=== PATIENT | male | born 1945 | race Caucasian/White ===

== ENCOUNTER 2017-05-26 11:28 | Day surgery (SDC) | payer MEDICARE, BC ==
[~2017-05-26 11:28] MED LIST: Acetaminophen TAB* 325 MG PO PRN; Buffered Lidocaine 0.9% SYRIN* 5 ML/SYR SYRINGE INTRADERM ONE
[2017-05-26] MEDS ORDERED: Midazolam* 1 MG/ML 2 ML VIAL (2 MG) ONE (12:45)
[2017-05-26] MEDS ORDERED: fentaNYL* 50 MCG/ML 2 ML VIAL (100 MCG VIAL) ONE (13:16)
[2017-05-26 13:49] VITALS: BP 135/88
--- NOTE | 2017-05-26 15:03 | OP ---
DATE OF OPERATION/DATE OF DICTATION: 05/26/2017 - [facility] DATE OF : 1945. SURGEON: Dr. Miguel Santos. PRIVATE ADVISOR: None. ANESTHESIA: Topical with intravenous sedation. PRE-OP DIAGNOSIS: Cataract, left eye. POST-OP DIAGNOSIS: Cataract, left eye. OPERATIVE PROCEDURE: Phacoemulsification and cataract extraction with posterior chamber intraocular lens implant, left eye. COMPLICATIONS: None. BLOOD LOSS: None. DESCRIPTION OF PROCEDURE: The patient was brought to the operating room and received a small amount of intravenous sedation. A drop of Tetracaine was placed in his left eye. He was prepped and draped in the usual sterile fashion for ophthalmic surgery and attention was directed to the left eye where a speculum was placed. A paracentesis was created at the 5 o'clock position and 0.1 cc of 1 percent preservative-free Lidocaine was injected into the anterior chamber followed by DisCoVisc. The eye was digitally stabilized while a 2.75 mm keratome was used to create a triplanar clear corneal incision at the 3 o'clock position. A continuous curvilinear capsulorrhexis was created with a cystotome and Utrata forceps. BSS on a cannula was used to hydrodissect the lens from the capsule. Phacoemulsification was performed in a tkooco-aop-rwtmoja technique to create four fragments which were removed. Residual cortical material was removed with irrigation and aspiration. DisCoVisc was used to inflate the capsular bag and an AUOOTO 18.0 diopter lens was folded and inserted into the capsular bag. DisCoVisc was removed using irrigation and aspiration. BSS on a cannula was used to hydrate the corneal stroma and seal the wound. At the end of the case the pupil was round and the lens was centered. The eye was of normal pressure and the wound was water tight. The speculum was removed and topical Maxitrol ointment was placed on the surface of the eye. The eye was closed, patched and shielded and the patient was sent to the recovery room in stable condition with post operative instructions and follow-up appointment given. [id number]/[facility]PS #: [id number] MTDD
[2017-05-26] MEDS ORDERED: Tropicamide 1% OPTH.SOL* BTL ONE (15:27)
[2017-05-26] MEDS ORDERED: Tetracaine 0.5% OPTH.SOL 4 ML* 1 DROP BTL ONE (15:27)
[2017-05-26] MEDS ORDERED: Ketorolac 0.5% OPHTH (NF) 0.5 % 5 ML BTL ONE (15:27)
[2017-05-26] MEDS ORDERED: Phenylephrine 2.5% OPTH.SOL* 2 ML BTL ONE (15:27)
[2017-05-26] MEDS ORDERED: Cyclopentolate 1% OPTH.SOL* 2 ML BTL ONE (15:27)
[2017-05-26] MEDS ORDERED: Neomycin/Polymy/Dex OPHTH.OIN* 3.5 GM ONE (15:27)
[2017-05-26] MEDS ORDERED: Lidocaine 1% MPF* 2 ML VIAL ONE (15:27)
== END 2017-05-26 13:49 | disposition home or self-care (01) ==
LOC: OREAST 11:28
PROVIDERS: ATTEND Ophthalmology
DX: H25.12 Age-related nuclear cataract, left eye (principal); I10 Essential (primary) hypertension; Z87.891 Personal history of nicotine dependence; E78.00 Pure hypercholesterolemia, unspecified
CPT/HCPCS: A9270-GY; J2250; J3010; V2632

== ENCOUNTER 2018-03-08 13:43 | Emergency (ER) | payer MEDICARE, BC ==
[2018-03-08 14:20] VITALS: BP 145/90
--- NOTE | 2018-03-08 15:12 | RAD ---
HISTORY: twisted fri, pain, swelling COMPARISONS: None VIEWS: 4 , Frontal, lateral, axial, and oblique views of the left knee FINDINGS: BONE DENSITY: Normal. BONES: There is a linear lucency along and inferior patellar enthesophyte. Elsewhere, there is no displaced fracture. JOINTS: There is mild tricompartmental osteoarthritis. There is a small suprapatellar joint effusion without lipohemarthrosis. ALIGNMENT: There is no dislocation. SOFT TISSUES: There is peripheral arterial calcification. OTHER FINDINGS: None. IMPRESSION: 1. THERE IS A LINEAR LUCENCY ALONG THE INFERIOR PATELLAR ENTHESOPHYTE WHICH MAY REFLECT A FRACTURE THROUGH THE ENTHESOPHYTE OF UNCERTAIN ACUITY. RECOMMEND CORRELATION WITH SITE OF PAIN. 2. OSTEOARTHRITIS. 3. SMALL JOINT EFFUSION. 4. PERIPHERAL ARTERIAL DISEASE
--- NOTE | 2018-03-08 15:32 | UC ---
Knee Pain HPI - HPI Summary HPI Summary: A 72 y/o male accompanied by his presents to [facility] c/o left knee pain reaching 7/10 in severity. As per , the patient is constantly in pain. As per triage, "lAccording to the patient, on Thursday night (03/05/2018) he twisted his left knee slighting. That following Thursday (03/06/2018), he had no problems ambulating. On Thursday (03/06/2018), he drove six-hours and has been "sucky" every since. He noted that he can ambulate fairly good, however, getting up or down brings on pain in which he described, "in and out of column" . He stated that when he keeps his leg straight, he experiencing very minimal pain (feels it slightly), however, when he bends, it hurts. He has to take a few seconds to straightened his leg out and has to walk with a limp. It does get better when he continues walking. He denies any fever, chills or previous injury. Additionally denies any calf or ankle pain. To alleviate symptoms, he took Tylenol and Ibuprofen last night along with placing an ice pack on the area , but he is unsure if it made a difference in his pain level. Patient did not take any medications today for his pain/symptoms. Has seen Orthopedics, Dr. Headley, in the past for a left broken wrist. His left knee does not look swollen from his perspective, but he is unsure. No known allergies. Pt's medications reviewed this visit. - History of Current Complaint Chief Complaint: UCLowerExtremity Stated Complaint: KNEE INJURY Time Seen by Provider: 03/08/18 15:17 Hx Obtained From: Patient Onset/Duration: Lasting Days, Still Present Severity Initially: Moderate Severity Currently: Moderate Pain Intensity: 7 Pain Scale Used: 0-10 Numeric Character: Stiffness Aggravating Factor(s): Movement - Bending movment Alleviating Factor(s): Nothing Associated Signs And Symptoms: Positive: Negative Able to Bear Weight: No - Patient is limping during ambulance. - Allergies/Home Medications Allergies/Adverse Reactions: Allergies Allergy/AdvReac Type Severity Reaction Status Date / Time No Known Allergies Allergy Verified 03/08/18 14:20 Home Medications: Home Medications Flaxseed Oil [[place]-3 Flaxseed Oil] 1,000 mg PO DAILY 03/08/18 [History Confirmed 03/08/18] Lisinopril 20 mg PO DAILY 03/08/18 [History Confirmed 03/08/18] PMH/Surg Hx/FS Hx/Imm Hx Endocrine History: Diabetes - NEGATIVE Cardiovascular History: Hypertension - Surgical History Surgical History: Yes Surgery Procedure, Year, and Place: 1949- HERNIA REPAIR- [place]. - APPENDECTOMY- [place]. 1967- [facility]IA REPAIR- [facility]. - HERNIA REPAIR- [facility]. 2008- HERNIA REPAIR- [facility]. 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 Alcohol Use: Rare Alcohol Amount: 1-2 BEERS/ EVERY 6 MONTHS Substance Use Type: None Smoking Status (MU): Former Smoker Type: Cigarettes Amount Used/How Often: 2 PPD FOR 33 YRS Length of Time of Smoking/Using Tobacco: 33 YRS Have You Smoked in the Last Year: No When Did the Patient Quit Smoking/Using Tobacco: 1992 - Immunization History Most Recent Tetanus Shot: UTD, PT STATES PER DR. TOMAS Review of Systems Constitutional: Negative Skin: Negative Eyes: Negative ENT: Negative Respiratory: Negative Cardiovascular: Negative Gastrointestinal: Negative Genitourinary: Negative Motor: Negative Neurovascular: Negative Musculoskeletal: Other: - Left knee pain. Neurological: Negative Psychological: Negative Is Patient Immunocompromised?: No All Other Systems Reviewed And Are Negative: Yes Physical Exam - Summary Physical Exam Summary: Vital Signs Reviewed: Yes A+Ox3, no distress Eyes: Conjunctiva Clear, HECTOR. EOM intact and full ENT: Hearing grossly normal TM x 2 clear, mmoist, uvula midline, no exudate, no erythema Neck: Positive: Supple Respiratory: Positive: No respiratory distress, No accessory muscle use + CTA throughout no w/r Cardiovascular: RRR nl s1, s2 no m/r CBT <2 sec 2+ DP, PT no calf discomfort abd soft + BS nt/nd no guarding, no distension Musculoskeletal Exam: left LE: + SLE + flex/ext knee with discomfort lateral asect + flex/ext ankle no edema neg anterior/posterior drawer Neurological: Positive: Alert, + sensation throughout + gross sensation Psychological: Positive: Normal Response To Family Skin: Positive: no rash, no ecchymosis Triage Information Reviewed: Yes Vital Signs: Initial Vital Signs Temp 98.6 F 03/08/18 14:15 Pulse 77 03/08/18 14:15 Resp 18 03/08/18 14:15 BP 145/90 03/08/18 14:15 Pulse Ox 94 03/08/18 14:15 Vital Signs Reviewed: Yes Diagnostics - Radiology KNEE XR Radiology Interpretation Completed By: Radiologist - 1. THERE IS A LINEAR LUCENCY ALONG THE INFERIOR PATELLAR ENTHESOPHYTE WHICH MAY REFLECT A FRACTURE THROUGH THE ENTHESOPHYTE OF UNCERTAIN ACUITY. RECOMMEND CORRELATION WITH SITE OF PAIN. 2. OSTEOARTHRITIS. 3. SMALL JOINT EFFUSION. 4. PERIPHERAL ARTERIAL DISEASE [facility] PHYSICIAN REVIEWED THIS RADIOLOGY REPORT. Knee Pain Course/Dx - Course Course Of Treatment: Blood pressure noted and patient informed to follow up with PCP. Pt with left knee pain s/p twisting on Thursday. pt states pain worse with walking and ROM. no paresthesia. no weakness. will check xray. if neg - recommend rolando. crutches. ice. motrin/apap. orthoreferral. pt with mildly elevated bp -f/u with pcp - Differential Dx/Diagnosis Provider Diagnoses: knee sprain Discharge - Sign-Out/Discharge Documenting (check all that apply): Patient Departure - DISCHARGE All imaging exams completed and their final reports reviewed: Yes - KNEE XR - Discharge Plan Condition: Stable Disposition: HOME Patient Education Materials: Crutch Instructions (ED), Knee Pain (ED) Referrals: Edie Headley MD [Medical Doctor] - Grace Cruz MD [Primary Care Provider] - Additional Instructions: -wear rolando wrap for comfort and support -apply ice (20 min at a time) every 2-3 hours for the next 2 days -use crutches so that you are walk normally without a limp -Elevate your leg - this will help with swelling and pain - Alternate ibuprofen (advil, Motrin) 400mg and tylenol 2 tablets every 3 hours for pain. Take with food. Do NOT take for more than 4-5 days - Contact the orthopedic office to schedule a follow-up appointment in the next 1-2 days. If you pain becomes uncontrolled, you develop fever, reddness, red streaking, increased swelling, or other concerns it is recommended you go to the emergency department for further evaluation - Billing Disposition and Condition Condition: STABLE Disposition: Home - Attestation Statements Document Initiated by Scribe: Yes Documenting Scribe: Marc Stover Provider For Whom Scribe is Documenting (Include Credential): Lata Ferrell MD Scribe Attestation: Marc Banks, scribed for Lata Ferrell MD on 03/10/18 at 1417. Scribe Documentation Reviewed: Yes Provider Attestation: The documentation as recorded by the luisibMarc woods accurately reflects the service I personally performed and the decisions made by me, Lata Ferrell MD
== END 2018-03-08 16:10 | disposition home or self-care (01) ==
LOC: UCEAST 13:43
CPT/HCPCS: 99213; G0463

== ENCOUNTER 2018-10-19 06:16 | Day surgery (SDC) | payer MEDICARE, BC ==
[~2018-10-19 06:16] MED LIST changes: -Buffered Lidocaine 0.9% SYRIN* 5 ML/SYR SYRINGE INTRADERM ONE; +Buffered Lidocaine 1% SYRIN* 1 ML/SYRINGE INTRADERM ONE
[2018-10-19] MEDS ORDERED: Midazolam* 1 MG/ML 2 ML VIAL (2 MG) ONE (07:28)
--- NOTE | 2018-10-19 08:22 | OP ---
OPERATIVE REPORT: DATE OF OPERATION: 10/19/18 DATE OF : 45 SURGEON: Dr. Miguel Santos. ANTHROPOLOGY PROFESSOR: None. ANESTHESIA: Topical with intravenous sedation. PRE-OP DIAGNOSIS: Cataract, right eye. POST-OP DIAGNOSIS: Cataract, right eye. OPERATIVE PROCEDURE: Phacoemulsification and cataract extraction with posterior chamber intraocular lens implant, right eye. COMPLICATIONS: None. BLOOD LOSS: None. OPERATIVE FINDINGS: The patient was brought to the operating room and received a small amount of int ravenous sedation. A drop of Tetracaine was placed in his right eye. He was prepped and draped in t he usual sterile fashion for ophthalmic surgery and attention was directed to the right eye where a s peculum was placed. A paracentesis was created at the 11 o'clock position and 0.1 cc of 1 percent pr eservative-free Lidocaine was injected into the anterior chamber followed by DisCoVisc. The eye was digitally stabilized while a 2.75 mm keratome was used to create a triplanar clear corneal incision a t the 9 o'clock position. A continuous curvilinear capsulorrhexis was created with a cystotome and U trata forceps. BSS on a cannula was used to hydrodissect the lens from the capsule. Phacoemulsifica tion was performed in a [id number] technique to create four fragments which were removed. Re sidual cortical material was removed with irrigation and aspiration. DisCoVisc was used to inflate th e capsular bag and an AU00T0 19.0 diopter lens was folded and inserted into the capsular bag. DisCoV isc was removed using irrigation and aspiration. BSS on a cannula was used to hydrate the corneal st estelle and seal the wound. At the end of the case the pupil was round and the lens was centered. The e ye was of normal pressure and the wound was water tight. The speculum was removed and topical Maxitr ol ointment was placed on the surface of the eye. The eye was closed, patched and shielded and the p atient was sent to the recovery room in stable condition with post operative instructions and follow- up appointment given. [id number]/[facility] #: [id number]
[2018-10-19 09:24] VITALS: BP 126/77
[2018-10-19] MEDS ORDERED: Tetracaine 0.5% OPTH.SOL 4 ML* 1 DROP BTL ONE (12:11)
[2018-10-19] MEDS ORDERED: Neomycin/Polymy/Dex OPHTH.OIN* 3.5 GM ONE (12:11)
[2018-10-19] MEDS ORDERED: Lidocaine 1%* 5 ML VIAL ONE (12:11)
[2018-10-19] MEDS ORDERED: Ketorolac 0.5% OPHTH (NF) 0.5 % 5 ML BTL ONE (12:11)
[2018-10-19] MEDS ORDERED: Tropicamide 1% OPTH.SOL* BTL ONE (12:11)
[2018-10-19] MEDS ORDERED: Phenylephrine OPHTH SOL 2.5%* 2 ML ONE (12:11)
[2018-10-19] MEDS ORDERED: Cyclopentolate 1% OPTH.SOL* 2 ML BTL ONE (12:11)
== END 2018-10-19 08:10 | disposition home or self-care (01) ==
LOC: OREAST 06:16
PROVIDERS: ATTEND Ophthalmology
DX: H25.041 Posterior subcapsular polar age-related cataract, right eye (principal); I10 Essential (primary) hypertension; E78.00 Pure hypercholesterolemia, unspecified; Z85.828 Personal history of other malignant neoplasm of skin; J44.9 Chronic obstructive pulmonary disease, unspecified; K21.9 Gastro-esophageal reflux disease without esophagitis; M19.90 Unspecified osteoarthritis, unspecified site; E78.5 Hyperlipidemia, unspecified
CPT/HCPCS: A9270-GY; J2250; V2632